=== PATIENT | female | born 1945 | race Caucasian/White ===

== ENCOUNTER 2017-08-07 16:07 | Inpatient (IN) | payer MEDICARE, BC ==
[2017-08-07] VITALS (8 sets, daily range): BP systolic 119–142; BP diastolic 58–65; PULSE 70–100; RESP 16–22; TEMP 97.5–98.4; O2SAT 80–95
[~2017-08-07] VITALS: Ht 157.5 cm; Wt 74.3 kg
--- NOTE | 2017-08-07 16:34 | PD ---
Physical Exam Time Seen by Provider: 16:32 Narrative 71 year old female being treated for bronchitis on levaquin and medrol dosepak for the last 5 days presents to ED for evaluation of worsening shortness of breath, cough, chest congestion, and rib pain. Symptoms began 10 days ago. Denies fever or chills. Hx of COPD. On oxygen at home. O2 sat 80% here in triage. Data Data Last Documented VS Vital Signs Date Time Temp Pulse Resp B/P (MAP) Pulse Ox O2 Delivery O2 Flow Rate FiO2 08/07/17 19:20 95 Nasal Cannula 3.00 08/07/17 17:27 70 17 121/58 (79) 08/07/17 16:10 98.4 Orders Orders Complete Blood Count With Diff (08/07/17 17:02) Comprehensive Metabolic Panel (08/07/17 17:02) B-Type Natriuretic Peptide (08/07/17 17:02) Act Partial Throm Time (Ptt) (08/07/17 17:02) Prothrombin Time / Inr (Pt) (08/07/17 17:02) Ckmb (Isoenzyme) Profile (08/07/17 17:02) Troponin I (08/07/17 17:02) Blood Culture (08/07/17 17:02) Iv Access Insert/Monitor (08/07/17 17:02) Electrocardiogram (08/07/17 17:02) Ecg Monitoring (08/07/17 17:02) Oximetry (08/07/17 17:02) Oxygen Administration (08/07/17 17:02) Chest, Single Ap (08/07/17 17:02) Sodium Chloride 0.9% Flush (Ns Flush) (08/07/17 17:15) Furosemide Inj (Lasix Inj) (08/07/17 17:15) Ct Brain W/O Iv Contrast(Rout) (08/07/17 17:06) Methylprednisolone So Succ Inj (Solumedr (08/07/17 19:15) Albuterol-Ipratropium Neb (Duoneb Neb) (08/07/17 19:15) Azithromycin Inj (Zithromax Inj) (08/07/17 19:30) Ceftriaxone Inj (Rocephin Inj) (08/07/17 19:30) Admit Order (Ed Use Only) (08/07/17 19:28) Labs Laboratory Tests Test 08/07/17 16:55 White Blood Count 14.1 TH/MM3 Red Blood Count 4.78 MIL/MM3 Hemoglobin 14.5 GM/DL Hematocrit 43.8 % Mean Corpuscular Volume 91.6 FL Mean Corpuscular Hemoglobin 30.4 PG Mean Corpuscular Hemoglobin Concent 33.2 % Red Cell Distribution Width 14.5 % Platelet Count 420 TH/MM3 Mean Platelet Volume 8.5 FL Neutrophils (%) (Auto) 84.4 % Lymphocytes (%) (Auto) 11.0 % Monocytes (%) (Auto) 4.1 % Eosinophils (%) (Auto) 0.1 % Basophils (%) (Auto) 0.4 % Neutrophils # (Auto) 11.9 TH/MM3 Lymphocytes # (Auto) 1.6 TH/MM3 Monocytes # (Auto) 0.6 TH/MM3 Eosinophils # (Auto) 0.0 TH/MM3 Basophils # (Auto) 0.1 TH/MM3 CBC Comment AUTO DIFF Differential Comment AUTO DIFF CONFIRMED Platelet Estimate NORMAL Platelet Morphology Comment NORMAL Prothrombin Time 11.4 SEC Prothromb Time International Ratio 1.0 RATIO Activated Partial Thromboplast Time 31.0 SEC Blood Urea Nitrogen 12 MG/DL Creatinine 0.98 MG/DL Random Glucose 101 MG/DL Total Protein 8.1 GM/DL Albumin 2.9 GM/DL Calcium Level 8.9 MG/DL Alkaline Phosphatase 280 U/L Aspartate Amino Transf (AST/SGOT) 21 U/L Alanine Aminotransferase (ALT/SGPT) 15 U/L Total Bilirubin 0.3 MG/DL Sodium Level 137 MEQ/L Potassium Level 3.6 MEQ/L Chloride Level 96 MEQ/L Carbon Dioxide Level 34.7 MEQ/L Anion Gap 6 MEQ/L Estimat Glomerular Filtration Rate 56 ML/MIN Total Creatine Kinase 60 U/L Troponin I LESS THAN 0.02 NG/ML B-Type Natriuretic Peptide 24 PG/ML [facility] Medical Record Reviewed: Yes Supervised Visit with PHILLIP: No Condition: Stable Dayami Landeros Aug 07, 2017 16:34
[2017-08-07] MEDS ORDERED: SOMA350T PO (16:56)
[2017-08-07] MEDS ORDERED: LAMO100 PO (16:56)
[2017-08-07] MEDS ORDERED: ABIL2TAB2 PO (16:56)
[2017-08-07] MEDS ORDERED: LEVA500T20 PO (16:56)
[2017-08-07] MEDS ORDERED: FURO20TA PO (16:56)
[2017-08-07] MEDS ORDERED: CELE40TA PO (16:56)
--- NOTE | 2017-08-07 17:06 | PD ---
HPI Chief Complaint: Respiratory Symptoms Time Seen by Provider: 17:02 Travel History International Travel<30 days: No Contact w/Intl Traveler<30days: No Traveled to known affect area: No History of Present Illness HPI 71-year-old female patient with history of chronic leg edema, COPD, presents to the ER today for several days history of coughing, initially was thought to have bronchitis, but was seen by primary care doctor today and was found to have fluid in her lungs. She states that she has been having some shortness of breath and dyspnea on exertion. She denies any fevers, or vomiting or any other issues. She was sent in for further evaluation. In addition, she has had 2 falls recently, does not know what happened, states that she just falls back after legs give out on her. Modifying Factors: None Associated Signs & Symptoms: Coughing, dyspnea on exertion, falls Risk Factors: Elderly, leg edema chronically, COPD PFSH Past Medical History Depression: Yes COPD: Yes Immunizations Current: Yes Pneumonia: Yes Influenza Vaccination: Yes Past Surgical History Appendectomy: Yes Cholecystectomy: Yes Hysterectomy: Yes Tonsillectomy: Yes Social History Alcohol Use: Yes (occas) Tobacco Use: No Substance Use: No Allergies-Medications (Allergen,Severity, Reaction): Coded Allergies: No Known Allergies (Unverified , 08/07/17) Reported Meds & Prescriptions Reported Meds & Active Scripts Active Reported Fentanyl Patch 72 HR (Fentanyl) 100 Mcg/Hr Patch 100 Mcg T-DERMAL Q72H Remove old patch when new one placed. Furosemide 20 Mg Tab 20 Mg PO DAILY Levaquin (Levofloxacin) 500 Mg Tablet Unknown Dose PO DAILY Celexa (Citalopram Hydrobromide) 40 Mg Tab 40 Mg PO DAILY Lamictal (Lamotrigine) 100 Mg Tab 100 Mg PO BID Abilify (Aripiprazole) 2 Mg Tab 2 Mg PO DAILY Soma (Carisoprodol) 350 Mg Tab 350 Mg PO BID PRN Review of Systems Except as stated in HPI: all other systems reviewed are Neg Physical Exam Narrative GENERAL: Well-developed elderly white female patient currently in mild respiratory distress. Awake and oriented 3. SKIN: Focused skin assessment warm/dry. HEAD: Atraumatic. Normocephalic. EYES: Pupils equal and round. No scleral icterus. No injection or drainage. ENT: No nasal bleeding or discharge. Mucous membranes pink and moist. NECK: Trachea midline. No JVD. CARDIOVASCULAR: Regular rate and rhythm. No murmur appreciated. RESPIRATORY: No accessory muscle use. Bibasilar rails. GASTROINTESTINAL: Abdomen soft, non-tender, nondistended. Hepatic and splenic margins not palpable. MUSCULOSKELETAL: No obvious deformities. No clubbing. No cyanosis. No edema. NEUROLOGICAL: Awake and alert. No obvious cranial nerve deficits. Motor grossly within normal limits. Normal speech. PSYCHIATRIC: Appropriate mood and affect; insight and judgment normal. Data Data Last Documented VS Vital Signs Date Time Temp Pulse Resp B/P (MAP) Pulse Ox O2 Delivery O2 Flow Rate FiO2 08/07/17 17:27 70 17 121/58 (79) 95 Nasal Cannula 2.00 08/07/17 16:10 98.4 Orders Orders Complete Blood Count With Diff (08/07/17 17:02) Comprehensive Metabolic Panel (08/07/17 17:02) B-Type Natriuretic Peptide (08/07/17 17:02) Act Partial Throm Time (Ptt) (08/07/17 17:02) Prothrombin Time / Inr (Pt) (08/07/17 17:02) Ckmb (Isoenzyme) Profile (08/07/17 17:02) Troponin I (08/07/17 17:02) Blood Culture (08/07/17 17:02) Iv Access Insert/Monitor (08/07/17 17:02) Electrocardiogram (08/07/17 17:02) Ecg Monitoring (08/07/17 17:02) Oximetry (08/07/17 17:02) Oxygen Administration (08/07/17 17:02) Chest, Single Ap (08/07/17 17:02) Sodium Chloride 0.9% Flush (Ns Flush) (08/07/17 17:15) Furosemide Inj (Lasix Inj) (08/07/17 17:15) Ct Brain W/O Iv Contrast(Rout) (08/07/17 17:06) Methylprednisolone So Succ Inj (Solumedr (08/07/17 19:15) Albuterol-Ipratropium Neb (Duoneb Neb) (08/07/17 19:15) Labs Laboratory Tests Test 08/07/17 16:55 White Blood Count 14.1 TH/MM3 Red Blood Count 4.78 MIL/MM3 Hemoglobin 14.5 GM/DL Hematocrit 43.8 % Mean Corpuscular Volume 91.6 FL Mean Corpuscular Hemoglobin 30.4 PG Mean Corpuscular Hemoglobin Concent 33.2 % Red Cell Distribution Width 14.5 % Platelet Count 420 TH/MM3 Mean Platelet Volume 8.5 FL Neutrophils (%) (Auto) 84.4 % Lymphocytes (%) (Auto) 11.0 % Monocytes (%) (Auto) 4.1 % Eosinophils (%) (Auto) 0.1 % Basophils (%) (Auto) 0.4 % Neutrophils # (Auto) 11.9 TH/MM3 Lymphocytes # (Auto) 1.6 TH/MM3 Monocytes # (Auto) 0.6 TH/MM3 Eosinophils # (Auto) 0.0 TH/MM3 Basophils # (Auto) 0.1 TH/MM3 CBC Comment AUTO DIFF Differential Comment AUTO DIFF CONFIRMED Platelet Estimate NORMAL Platelet Morphology Comment NORMAL Prothrombin Time 11.4 SEC Prothromb Time International Ratio 1.0 RATIO Activated Partial Thromboplast Time 31.0 SEC Blood Urea Nitrogen 12 MG/DL Creatinine 0.98 MG/DL Random Glucose 101 MG/DL Total Protein 8.1 GM/DL Albumin 2.9 GM/DL Calcium Level 8.9 MG/DL Alkaline Phosphatase 280 U/L Aspartate Amino Transf (AST/SGOT) 21 U/L Alanine Aminotransferase (ALT/SGPT) 15 U/L Total Bilirubin 0.3 MG/DL Sodium Level 137 MEQ/L Potassium Level 3.6 MEQ/L Chloride Level 96 MEQ/L Carbon Dioxide Level 34.7 MEQ/L Anion Gap 6 MEQ/L Estimat Glomerular Filtration Rate 56 ML/MIN Total Creatine Kinase 60 U/L Troponin I LESS THAN 0.02 NG/ML B-Type Natriuretic Peptide 24 PG/ML MDM Medical Decision Making Medical Screen Exam Complete: Yes Emergency Medical Condition: Yes Medical Record Reviewed: Yes Interpretation(s) EKG shows NSR, no ST elevation or depression, and no arrhythmias. No significant T-wave inversions. Laboratory Tests Test 08/07/17 16:55 White Blood Count 14.1 TH/MM3 (4.0-11.0) Neutrophils (%) (Auto) 84.4 % (16.0-70.0) Neutrophils # (Auto) 11.9 TH/MM3 (1.8-7.7) Activated Partial Thromboplast Time 31.0 SEC (24.3-30.1) Albumin 2.9 GM/DL (3.4-5.0) Alkaline Phosphatase 280 U/L (45-117) Chloride Level 96 MEQ/L (98-107) Carbon Dioxide Level 34.7 MEQ/L (21.0-32.0) Estimat Glomerular Filtration Rate 56 ML/MIN (>89) Troponin I LESS THAN 0.02 NG/ML Differential Diagnosis Dyspnea on exertion, shortness of breath, falls: Dehydration versus pneumonia versus CHF versus COPD exacerbation Narrative Course Initial exam was concerning for bibasilar Rales and Lasix was initiated in the ER. Solu-Medrol and nebulizers were also ordered. Patient appears to be doing badly as an outpatient had been sent in by her primary care physician. At this point, Zithromax was also initiated considering history. My plan would be to admit her for further treatment. Case was discussed with Dr. Robins for admission. Diagnosis Primary Impression: Pulmonary edema Additional Impression: COPD exacerbation Admitting Information Admitting Physician Requests: Admit Condition: Stable Simeon Martin MD Aug 07, 2017 17:06
[2017-08-07] MEDS ORDERED: SODIUM CHLORIDE 0.9% FLUSH 10 ML FLUSH IVF PRN (17:15)
[2017-08-07] MEDS ORDERED: FUROSEMIDE 40 MG/4 ML VIAL IVP ONE (17:15)
[2017-08-07] MEDS ORDERED: FENT100D T-DERMAL (17:30)
[2017-08-07 17:37] LABS: AUTOMATED NEUTROPHIL # 11.9 TH/MM3 (1.8-7.7); BASOPHIL # 0.1 TH/MM3 (0-0.2); BASOPHIL % 0.4 % (0.0-2.0); EOSINOPHIL % 0.1 % (0.0-4.0); HEMATOCRIT 43.8 % (35.0-46.0); LYMPHOCYTE # 1.6 TH/MM3 (1.0-4.8); MEAN CELL VOLUME 91.6 FL (80.0-100.0); MEAN CORPUSCULAR HEMOGLOBIN 30.4 PG (27.0-34.0); MEAN CORPUSCULAR HGB CONC 33.2 % (32.0-36.0); MONO % 4.1 % (0.0-8.0); NEUT % 84.4 % (16.0-70.0); PLATELET COUNT 420 TH/MM3 (150-450); RED BLOOD COUNT 4.78 MIL/MM3 (4.00-5.30); RED CELL DISTRIBUTION WIDTH 14.5 % (11.6-17.2); WHITE BLOOD COUNT 14.1 TH/MM3 (4.0-11.0)
[2017-08-07 17:44] LABS: HEMO FLAGS AUTO DIFF
--- NOTE | 2017-08-07 17:44 | RADRPT ---
EXAM DATE/TIME: 08/07/2017 17:17 [facility] COMPARISON: No previous studies available for comparison. INDICATIONS : Short of breath. Right side rib pain from fall 2 days ago. MEDICAL HISTORY : None. SURGICAL HISTORY : None. ENCOUNTER: Initial ACUITY: 1 day PAIN SCORE: 5/10 LOCATION: Right chest FINDINGS: Minimal linear peripheral opacities in the right lower lobe peripherally. No significant pneumothorax , effusion, or left apical cap. Cardiomedi centimeters are within normal limits. Probable nondisplace d fracture involving the lateral 10th right rib. CONCLUSION: 1. Probable nondisplaced lateral 10th right rib fracture with right lower lobe atelectasis. No pneumo thorax. Joao Guerrero MD on August 07, 2017 at 17:41 Board Certified Radiologist. This report was verified electronically.
[2017-08-07 17:45] LABS: PROTHROMBIN TIME - PATIENT 11.4 SEC (9.8-11.6)
[2017-08-07 17:58] LABS: ALT (GPT) 15 U/L (10-53)
--- NOTE | 2017-08-07 18:02 | RADRPT ---
EXAM DATE/TIME: 08/07/2017 17:42 [facility] COMPARISON: No previous studies available for comparison. INDICATIONS : Syncope episode. RADIATION DOSE: 47.34 CTDIvol (mGy) MEDICAL HISTORY : Chronic obstructive pulmonary disease. SURGICAL HISTORY : Appendectomy. Cholecystectomy.Hysterectomy. ENCOUNTER: Initial ACUITY: 1 day PAIN SCALE: 3/10 LOCATION: cranial TECHNIQUE: Multiple contiguous axial images were obtained of the head. Using automated exposure control and adj ustment of the mA and/or kV according to patient size, radiation dose was kept as low as reasonably a chievable to obtain optimal diagnostic quality images. DICOM format image data is available electro nically for review and comparison. FINDINGS: CEREBRUM: Mild diffuse cerebral volume loss. Mild periventricular white matter hypodensities. The ventricles ar e normal for age. No evidence of midline shift, mass lesion, hemorrhage or acute infarction. No ext ra-axial fluid collections are seen. POSTERIOR FOSSA: The cerebellum and brainstem are intact. The 4th ventricle is midline. The cerebellopontine angle i s unremarkable. EXTRACRANIAL: The visualized portion of the orbits is intact. Mild mucoperiosteal thickening involving the right sp henoid sinus and ethmoid air cells. SKULL: The calvaria is intact. No evidence of skull fracture. CONCLUSION: 1. Senescent changes with mild periventricular ischemic white matter demyelination. 2. Right sphenoid and ethmoid mucosal sinus disease. 3. No acute intracranial abnormality. Joao Guerrero MD on August 07, 2017 at 17:59 Board Certified Radiologist. This report was verified electronically.
[2017-08-07 18:30] LABS: ALKALINE PHOSPHATASE 280 U/L (45-117); ANION GAP 6 MEQ/L (5-15); AST (GOT) 21 U/L (15-37); BICARBONATE 34.7 MEQ/L (21.0-32.0); BLOOD UREA NITROGEN 12 MG/DL (7-18); CHLORIDE 96 MEQ/L (98-107); GLOMERULAR FILTRATION RATE 56 ML/MIN (>89); POTASSIUM 3.6 MEQ/L (3.5-5.1); SODIUM (NA) 137 MEQ/L (136-145); TOTAL BILIRUBIN ADULT 0.3 MG/DL (0.2-1.0)
[2017-08-07 18:31] LABS: CREATINE KINASE 60 U/L (26-192)
[2017-08-07 18:40] LABS: PLATELET ESTIMATE SMEAR NORMAL (NORMAL); PLATELET MORPHOLOGY NORMAL (NORMAL); SCAN/DIFF AUTO DIFF CONFIRMED
[2017-08-07] MEDS ORDERED: methylPREDNISolone SOD SUCC 125 MG/2 ML VIAL IV PUSH ONE (19:15)
[2017-08-07] MEDS: RESP: ALBUTEROL 2.5 MG/IPRATROPIUM 0.5 MG NEB (SCH) INH (19:20)
[2017-08-07] MEDS ORDERED: cefTRIAXone INJ 1,000 MG in SODIUM CHLORIDE 0.9% INJ 100 ML IV ONE (19:30)
[2017-08-07] MEDS ORDERED: AZITHROMYCIN INJ 500 MG in SODIUM CHLOR 0.9% 250 ML INJ 250 ML IV ONE (19:30)
[2017-08-07] MEDS ORDERED: NALOXONE HCL 0.4 MG/ML AMP IV PUSH PRN (19:45)
[2017-08-07] MEDS ORDERED: SODIUM CHLORIDE 0.9% FLUSH 10 ML FLUSH IV FLUSH PRN (19:45)
[2017-08-07] MEDS: SODIUM CHLORIDE 0.9% FLUSH 10 ML FLUSH IV FLUSH SCH (21:00)
[2017-08-07] MEDS: ACETAMINOPHEN/HYDROcodone 325 MG/5 MG TAB PO PRN (22:44)
--- NOTE | 2017-08-07 23:59 | HHI.HP ---
[facility] Service [place] [facility] Primary Care Physician Lebron Khoury DO Admission Diagnosis COPD exacerbation/pulmonary edema Diagnoses: (1) COPD exacerbation Chief Complaint: Pain following fall Cough and shortness of breath Travel History International Travel<30 Days: No Contact w/Intl Traveler <30 Da: No Traveled to Known Affected Are: No History of Present Illness Written by Jenna Del Angel, acting as scribe for Dr. Robins on 08/07/17 at 23:59. The patient states she had a "bad cold" and has been coughing for about a week. Sputum is clear in color. Reports shortness of breath "now and then". Uses supplemental oxygen at home at night only. She has used her inhaler at home with improvement in symptoms. She uses diuretics at home but has noted increasing lower extremity swelling with some medication noncompliance at home - stopped taking water pills for the last three weeks. Denies fever, nausea, vomiting, chest pain, chest tightness, abdominal pain, diarrhea, dysuria, black or red stool, hematuria, or dizziness. She was on Levaquin at home as prescribed by her PCP. She completed 7 out of a 10 day course of antibiotics. Patient reports pain with coughing in right lower posterior rib area. Fell backwards four days ago, fell the next day also - also backwards - Denies chest pain, palpitations, dizziness, or syncope prior to falls. 10th right rib fracture on x-ray 08/07/17 in ED. 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 Past Surgical History Spinal surgery Left knee surgery Right hip surgery 3 years ago Hysterectomy Cholecystectomy Appendectomy . Reported Medications Reported Meds & Active Scripts Active Reported Fentanyl Patch 72 HR (Fentanyl) 100 Mcg/Hr Patch 100 Mcg T-DERMAL Q72H Remove old patch when new one placed. Furosemide 20 Mg Tab 20 Mg PO DAILY Levaquin (Levofloxacin) 500 Mg Tablet Unknown Dose PO DAILY Celexa (Citalopram Hydrobromide) 40 Mg Tab 40 Mg PO DAILY Lamictal (Lamotrigine) 100 Mg Tab 100 Mg PO BID Abilify (Aripiprazole) 2 Mg Tab 2 Mg PO DAILY Soma (Carisoprodol) 350 Mg Tab 350 Mg PO BID PRN . Allergies: Coded Allergies: No Known Allergies (Unverified , 08/07/17) Active Ordered Medications Current Medications Sodium Chloride (NS Flush) 2 ml UNSCH PRN IVF FLUSH AFTER USING IV ACCESS Last administered on 08/07/17 17:25; Start 08/07/17 at 17:15 Furosemide (Lasix Inj) 40 mg ONCE ONCE IVP Last administered on 08/07/17 17: 25; Start 08/07/17 at 17:15; Stop 08/07/17 at 17:16; Status DC Methylprednisolone Sodium Succinate (SoluMEDROL INJ) 125 mg ONCE ONCE IV PUSH Last administered on 08/07/17 19:56; Start 08/07/17 at 19:15; Stop 08/07/17 at 19:16; Status DC Albuterol/ Ipratropium (Duoneb Neb) 1 ampule Q15M INH Last administered on 08/07 19:20; Start 08/07/17 at 19:15; Stop 08/07/17 at 19:31; Status DC Azithromycin 500 mg/Sodium Chloride 250 ml @ 250 mls/hr ONCE ONCE IV ; Start 08/07/17 at 19:30; Stop 08/07/17 at 20:29; Status DC Ceftriaxone Sodium 1000 mg/ Sodium Chloride 100 ml @ 200 mls/hr ONCE ONCE IV Last administered on 08/07/17 19:56; Start 08/07/17 at 19:30; Stop 08/07/17 at 19:59; Status DC Sodium Chloride (NS Flush) 2 ml UNSCH PRN IV FLUSH FLUSH AFTER USING IV ACCESS ; Start 08/07/17 at 19:45 Sodium Chloride (NS Flush) 2 ml BID IV FLUSH Last administered on 08/07/17 21: 00; Start 08/07/17 at 21:00 Naloxone HCl (Narcan Inj) 0.4 mg UNSCH PRN IV PUSH SEE LABEL COMMENTS; Start 08/07/17 at 19:45 Pneumococcal Polyvalent Vaccine (Pneumovax-23 Inj) 25 mcg ONCE ONCE IM ; Start 08/08/17 at 09:00; Stop 08/08/17 at 09:01 Acetaminophen/ Hydrocodone Bitart ([place] 5-325 Mg) 1 tab Q6H PRN PO pain >5 Last administered on 08/07/17t 22:44; Start 08/07/17 at 22:15 . Family History Mother with CHF Father with lung cancer Brother who is healthy . Social History Tobacco: quit smoking 7 years ago Alcohol: denies Illicit Drugs: denies Patient drives . Physical Exam Vital Signs Vital Signs Date Time Temp Pulse Resp B/P (MAP) Pulse Ox O2 Delivery O2 Flow Rate FiO2 08/07/17 22:53 125/60 (81) 95 2.00 08/07/17 21:09 95 08/07/17 20:00 97.5 94 16 119/59 (79) 92 08/07/17 19:53 94 Nasal Cannula 2.00 08/07/17 19:20 95 Nasal Cannula 3.00 08/07/17 17:27 70 17 121/58 (79) 95 Nasal Cannula 2.00 08/07/17 16:41 90 22 142/65 (90) 88 08/07/17 16:10 98.4 100 18 131/65 (87) 80 Room Air Physical Exam GENERAL: This is an overweight female patient, in no apparent distress. SKIN: No rashes, ecchymoses or lesions. Cool and dry. HEAD: Atraumatic. Normocephalic. EYES: No scleral icterus. No injection or drainage. ENT: Nose without bleeding, purulent drainage. Airway patent. NECK: Trachea midline. No JVD. CARDIOVASCULAR: Regular rate and rhythm without murmurs, gallops, or rubs. Non- pitting lower extremity edema more so on right than left - patient reports this as normal for her. RESPIRATORY: Right lower lobe with fine crepitations. No wheezes or rhonchi. GASTROINTESTINAL: Abdomen soft, non-tender, nondistended. No guarding. MUSCULOSKELETAL: Extremities without clubbing, cyanosis. No calf tenderness. Pain right posterior lower rib area. NEUROLOGICAL: Awake and alert. Motor and sensory grossly within normal limits. Normal speech. . Laboratory Laboratory Tests Test 08/07/17 16:55 White Blood Count 14.1 Red Blood Count 4.78 Hemoglobin 14.5 Hematocrit 43.8 Mean Corpuscular Volume 91.6 Mean Corpuscular Hemoglobin 30.4 Mean Corpuscular Hemoglobin Concent 33.2 Red Cell Distribution Width 14.5 Platelet Count 420 Mean Platelet Volume 8.5 Neutrophils (%) (Auto) 84.4 Lymphocytes (%) (Auto) 11.0 Monocytes (%) (Auto) 4.1 Eosinophils (%) (Auto) 0.1 Basophils (%) (Auto) 0.4 Neutrophils # (Auto) 11.9 Lymphocytes # (Auto) 1.6 Monocytes # (Auto) 0.6 Eosinophils # (Auto) 0.0 Basophils # (Auto) 0.1 CBC Comment AUTO DIFF Differential Comment AUTO DIFF CONFIRMED Platelet Estimate NORMAL Platelet Morphology Comment NORMAL Prothrombin Time 11.4 Prothromb Time International Ratio 1.0 Activated Partial Thromboplast Time 31.0 Blood Urea Nitrogen 12 Creatinine 0.98 Random Glucose 101 Total Protein 8.1 Albumin 2.9 Calcium Level 8.9 Alkaline Phosphatase 280 Aspartate Amino Transf (AST/SGOT) 21 Alanine Aminotransferase (ALT/SGPT) 15 Total Bilirubin 0.3 Sodium Level 137 Potassium Level 3.6 Chloride Level 96 Carbon Dioxide Level 34.7 Anion Gap 6 Estimat Glomerular Filtration Rate 56 Total Creatine Kinase 60 Troponin I LESS THAN 0.02 B-Type Natriuretic Peptide 24 Date/Time Source Procedure Growth Status 08/07/17 17:15 Blood Peripheral Aerobic Blood Culture Pending Received 08/07/17 17:15 Blood Peripheral Anaerobic Blood Culture Pending Received Result Diagram: 08/07/[id number]/07/171654 Imaging Last Impressions Head CT 08/07/171705 Signed Impressions: Service Date/Time: Monday, August 07, 2017 17:42 - CONCLUSION: 1. Senescent changes with mild periventricular ischemic white matter demyelination. 2. Right sphenoid and ethmoid mucosal sinus disease. 3. No acute intracranial abnormality. Joao Guerrero MD Chest X-Ray 08/07/171701 Signed Impressions: Service Date/Time: Monday, August 07, 2017 17:17 - CONCLUSION: 1. Probable nondisplaced lateral 10th right rib fracture with right lower lobe atelectasis. No pneumothorax. Joao Guerrero MD . Caprini VTE Risk Assessment Caprini VTE Risk Assessment: Mod/High Risk (score >= 2) Caprini Risk Assessment Model Point Value = 1 Point Value = 2 Point Value = 3 Point Value = 5 Age 41-60 Minor surgery BMI > 25 kg/m2 Swollen legs Varicose veins or History of unexplained or recurrent spontaneous Oral contraceptives or hormone replacement Sepsis (< 1 month) Serious lung disease, including pneumonia (< 1 month) Abnormal pulmonary function Acute myocardial infarction Congestive heart failure (< 1 month) History of inflammatory bowel disease Medical patient at bed rest Age 61-74 Arthroscopic surgery Major open surgery (> 45 min) Laparoscopic surgery (> 45 min) Malignancy Confined to bed (> 72 hours) Immobilizing plaster cast Central venous access Age >= 75 History of VTE Family history of VTE Factor V Leiden Prothrombin [id number] Lupus anticoagulant Anticardiolipin antibodies Elevated serum homocysteine Heparin-induced thrombocytopenia Other congenital or acquired thrombophilia Stroke (< 1 month) Elective arthroplasty Hip, pelvis, or leg fracture Acute spinal cord injury (< 1 month) Prophylaxis Regimen Total Risk Factor Score Risk Level Prophylaxis Regimen 0-1 Low Early ambulation 2 Moderate Order ONE of the following: *Sequential Compression Device (SCD) *Heparin 5000 units SQ BID 3-4 Higher Order ONE of the following medications: *Heparin 5000 units SQ TID *Enoxaparin/Lovenox 40 mg SQ daily (WT < 150 kg, CrCl > 30 mL/min) *Enoxaparin/Lovenox 30 mg SQ daily (WT < 150 kg, CrCl > 10-29 mL/min) *Enoxaparin/Lovenox 30 mg SQ BID (WT < 150 kg, CrCl > 30 mL/min) AND/OR *Sequential Compression Device (SCD) 5 or more Highest Order ONE of the following medications: *Heparin 5000 units SQ TID (Preferred with Epidurals) *Enoxaparin/Lovenox 40 mg SQ daily (WT < 150 kg, CrCl > 30 mL/min) *Enoxaparin/Lovenox 30 mg SQ daily (WT < 150 kg, CrCl > 10-29 mL/min) *Enoxaparin/Lovenox 30 mg SQ BID (WT < 150 kg, CrCl > 30 mL/min) AND *Sequential Compression Device (SCD) Assessment and Plan Problem List: (1) COPD exacerbation ICD Code: J44.1 - Chronic obstructive pulmonary disease with (acute) exacerbation Status: Acute (2) Lower extremity edema ICD Code: R60.0 - Localized edema Status: Chronic (3) Rib fracture ICD Code: S22.39XA - Fracture of one rib, unspecified side, initial encounter for closed fracture Assessment and Plan 71 year-old female who presented tot he ED on 08/07/17 to be evaluated for pain in right posterior thorax following a fall also found to have symptoms suspicious for COPD exacerbation and right rib fracture with two recent falls at home: COPD exacerbation with hypoxia - Oxygen saturation 80 % on admission - Duonebulizer treatments q4H PRN wheezing - WBC elevated at 14.1 - Check CT pulmonary angiogram to r/o PE - 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 q6h PRN pain DVT prophylaxis - Lovenox 40 mg subq q24h . This note was transcribed by [email or web address] [email or web address] [Jenna Del Angel]. I, Dr. Gricelda Robins personally performed the history, physical exam, and medical decision making; and confirmed the accuracy of the information in the transcribed note. Authenticated by Dr. Gricelda Robins on 08/07/17 at 23:59. Discussed Condition With ER physician and patient . Physician Certification 2 Midnight Certification Type: Admission for Inpatient Services Order for Inpatient Services The services are ordered in accordance with Medicare regulations or non- Medicare payer requirements, as applicable. In the case of services not specified as inpatient-only, they are appropriately provided as inpatient services in accordance with the 2-midnight benchmark. Estimated LOS (days): 3 days is the estimated time the patient will need to remain in the hospital, assuming treatment plan goals are met and no additional complications. Post-Hospital Plan: Not yet determined Jenna Del Angel Aug 07, 2017 23:59 Gricelda Robins MD Aug 15, 2017 23:07
[2017-08-08] VITALS (10 sets, daily range): BP systolic 104–132; BP diastolic 56–83; PULSE 80–94; RESP 18; TEMP 97.3–98.5; O2SAT 88–94
[2017-08-08] MEDS ORDERED: RESP: ALBUTEROL 2.5 MG/IPRATROPIUM 0.5 MG NEB (PRN) NEB (00:45)
[2017-08-08 00:47] LABS: CREATINE KINASE 38 U/L (26-192)
[2017-08-08] MEDS: ENOXAPARIN SODIUM 40 MG/0.4 ML SYRINGE SQ SCH (01:27)
[2017-08-08] MEDS ORDERED: IOHEXOL 350 MG/ML 10 ML VIAL (for RAD DIAG) IVCONTRAST ONE (02:54)
--- NOTE | 2017-08-08 03:05 | RADRPT ---
EXAM DATE/TIME: 08/08/2017 02:40 [place] COMPARISON: No previous studies available for comparison. INDICATIONS : Shortness of breath. Evaluate for embolism. IV CONTRAST: 75 cc Omnipaque 350 (iohexol) IV RADIATION DOSE: 8.14 CTDIvol (mGy) MEDICAL HISTORY : Chronic obstructive pulmonary disease. SURGICAL HISTORY : Hysterectomy. Appendectomy.Cholecystectomy. ENCOUNTER: Initial ACUITY: 1 day PAIN SCALE: 0/10 LOCATION: chest TECHNIQUE: Volumetric scanning of the chest was performed using a pulmonary embolism protocol MIP images were re constructed. Using automated exposure control and adjustment of the mA and/or kV according to patien t size, radiation dose was kept as low as reasonably achievable to obtain optimal diagnostic quality images. DICOM format image data is available electronically for review and comparison. Follow-up recommendations for detected pulmonary nodules are based at a minimum on nodule size and pa tient risk factors according to Fleischner Society Guidelines. FINDINGS: PULMONARY ARTERIES: No filling defects are seen in the pulmonary arteries through the segmental level. LUNGS: Emphysema and mild, diffuse thickening of the interlobular septa noted, probably chronic interstitial disease. A spiculated nodule measuring approximately 11 mm is seen in the left upper lobe. Both lung s have patchy areas of basilar predominant subpleural consolidation, right more so than left. Tiny ri ght pleural effusion. No pneumothorax. MEDIASTINUM: There is good visualization of the great vessels of the middle mediastinum. No evidence of mediastin al or hilar adenopathy/mass. MUSCULOSKELETAL: No acute bony abnormality demonstrated. MISCELLANEOUS: The visualized upper abdominal organs demonstrate no acute abnormality. CONCLUSION: 1. There is no pulmonary embolus. 2. Patchy subpleural consolidation of both lungs, basilar predominant and right worse than left. This is most likely infectious or inflammatory. Cryptogenic organizing pneumonia can appear similar. 3. Fibroemphysematous changes. 4. 11 mm nodule with irregular margins in the left upper lobe and early primary bronchogenic carcinom a is in the differential. PET CT is recommended if felt clinically indicated. Small size and location would make percutaneous needle biopsy difficult but could be attempted depending on the PET CT findi ngs. Reji Tobin MD on August 08, 2017 at 2:58 Board Certified Radiologist. This report was verified electronically.
[2017-08-08] MEDS: ACETAMINOPHEN/HYDROcodone 325 MG/5 MG TAB PO PRN ×3 (04:48→20:09)
[2017-08-08] MEDS: SODIUM CHLORIDE 0.9% FLUSH 10 ML FLUSH IV FLUSH SCH ×2 (07:44→20:10)
[2017-08-08 08:10] LABS: AUTOMATED NEUTROPHIL # 8.5 TH/MM3 (1.8-7.7); BASOPHIL % 0.1 % (0.0-2.0); HEMATOCRIT 39.2 % (35.0-46.0); LYMPH % 9.7 % (9.0-44.0); LYMPHOCYTE # 0.9 TH/MM3 (1.0-4.8); MEAN CORPUSCULAR HEMOGLOBIN 30.4 PG (27.0-34.0); MEAN CORPUSCULAR HGB CONC 33.4 % (32.0-36.0); MONO % 2.6 % (0.0-8.0); NEUT % 87.6 % (16.0-70.0); PLATELET COUNT 378 TH/MM3 (150-450); RED BLOOD COUNT 4.31 MIL/MM3 (4.00-5.30); RED CELL DISTRIBUTION WIDTH 14.3 % (11.6-17.2); WHITE BLOOD COUNT 9.7 TH/MM3 (4.0-11.0)
--- NOTE | 2017-08-08 08:11 | EKG ---
Date Performed: 08/07/2017 Time Performed: 16:47:25 PTAGE: 71 years EKG: Sinus rhythm WITH MARKED SINUS ARRHYTHMIA NONSPECIFIC T-WAVE ABNORMALITY BORDERLINE ECG Compared to prior tracing no significant change PREVIOUS TRACING : 02/27/1997 12.15 DOCTOR: Amna Lau Interpretating Date/Time 08/08/2017 08:09:56
--- NOTE | 2017-08-08 08:11 | EKG ---
Date Performed: 08/07/2017 Time Performed: 22:18:47 PTAGE: 71 years EKG: Sinus rhythm WITH MARKED SINUS ARRHYTHMIA NONSPECIFIC ST & T-WAVE ABNORMALITY BORDERLINE ECG Compared to prior tr acing no significant change PREVIOUS TRACING : 08/07/2017 16.47 DOCTOR: Amna Lau Interpretating Date/Time 08/08/2017 08:10:05
[2017-08-08 08:16] LABS: HEMO FLAGS AUTO DIFF
[2017-08-08 08:33] LABS: ANION GAP 7 MEQ/L (5-15); BICARBONATE 33.5 MEQ/L (21.0-32.0); BLOOD UREA NITROGEN 13 MG/DL (7-18); CHLORIDE 97 MEQ/L (98-107); GLOMERULAR FILTRATION RATE 67 ML/MIN (>89); POTASSIUM 3.6 MEQ/L (3.5-5.1); SODIUM (NA) 137 MEQ/L (136-145)
[2017-08-08 08:37] LABS: CREATINE KINASE 39 U/L (26-192)
[2017-08-08 08:50] LABS: PLATELET ESTIMATE SMEAR NORMAL (NORMAL); PLATELET MORPHOLOGY ENLARGED (NORMAL); SCAN/DIFF AUTO DIFF CONFIRMED
[2017-08-08] MEDS ORDERED: PNEUMOCOCCAL POLYVALENT INJ 25 MCG/0.5 ML SYR IM ONE (09:00)
--- NOTE | 2017-08-08 10:56 | HHI.PR ---
Subjective Remarks in no acute distress however with some sob. says that she's feeling better today. no fever. denies pain. has some occasional productive cough. Objective Vitals Vital Signs Date Time Temp Pulse Resp B/P (MAP) Pulse Ox O2 Delivery O2 Flow Rate FiO2 08/08/17 08:00 97.8 89 18 104/58 (73) 91 08/08/17 07:32 88 Nasal Cannula 2.00 08/08/17 04:00 97.9 89 18 107/61 (76) 94 08/08/17 04:00 Nasal Cannula 2.00 08/08/17 00:00 Nasal Cannula 2.00 08/08/17 00:00 98.0 83 18 110/59 (76) 94 08/07/17 22:53 125/60 (81) 95 2.00 08/07/17 21:09 95 08/07/17 20:00 97.5 94 16 119/59 (79) 92 08/07/17 19:53 94 Nasal Cannula 2.00 08/07/17 19:20 95 Nasal Cannula 3.00 08/07/17 17:27 70 17 121/58 (79) 95 Nasal Cannula 2.00 08/07/17 16:41 90 22 142/65 (90) 88 08/07/17 16:10 98.4 100 18 131/65 (87) 80 Room Air I/O 08/07/17 08/07/17 08/07/17 08/08/17 08/08/17 08/08/17 07:00 15:00 23:00 07:00 15:00 23:00 Intake Total 340 ml Balance 340 ml Intake Oral 240 ml IV Total 100 ml # Voids 2 # Bowel Movements 0 Result Diagram: 08/08/17 0540 08/08/17 [address] Angiography 08/08/17 0000 Signed Impressions: Service Date/Time: Tuesday, August 08, 2017 02:40 - CONCLUSION: 1. There is no pulmonary embolus. 2. Patchy subpleural consolidation of both lungs, basilar predominant and right worse than left. This is most likely infectious or inflammatory. Cryptogenic organizing pneumonia can appear similar. 3. Fibroemphysematous changes. 4. 11 mm nodule with irregular margins in the left upper lobe and early primary bronchogenic carcinoma is in the differential. PET CT is recommended if felt clinically indicated. Small size and location would make percutaneous needle biopsy difficult but could be attempted depending on the PET CT findings. Reji Tobin MD Head CT 08/07/171705 Signed Impressions: Service Date/Time: Monday, August 07, 2017 17:42 - CONCLUSION: 1. Senescent changes with mild periventricular ischemic white matter demyelination. 2. Right sphenoid and ethmoid mucosal sinus disease. 3. No acute intracranial abnormality. Joao Guerrero MD Chest X-Ray 08/07/171701 Signed Impressions: Service Date/Time: Monday, August 07, 2017 17:17 - CONCLUSION: 1. Probable nondisplaced lateral 10th right rib fracture with right lower lobe atelectasis. No pneumothorax. Joao Guerrero MD Objective Remarks GENERAL: This is a well-nourished, well-developed patient, in no apparent distress. CARDIOVASCULAR: Regular rate and regular rhythm without murmurs, gallops, or rubs. RESPIRATORY: diminished air entry in bases. GASTROINTESTINAL: Abdomen soft, non-tender, nondistended. Normal, active bowel sounds MUSCULOSKELETAL: Extremities without clubbing, cyanosis, or edema. NEURO: Alert & Oriented x4 to person, place, time, situation. Moves all ext x4 Medications and IVs Current Medications Sodium Chloride (NS Flush) 2 ml UNSCH PRN IVF FLUSH AFTER USING IV ACCESS Last administered on 08/07/17 17:25; Start 08/07/17 at 17:15; Stop 08/08/17 at 00:39 ; Status DC Furosemide (Lasix Inj) 40 mg ONCE ONCE IVP Last administered on 08/07/17 17: 25; Start 08/07/17 at 17:15; Stop 08/07/17 at 17:16; Status DC Methylprednisolone Sodium Succinate (SoluMEDROL INJ) 125 mg ONCE ONCE IV PUSH Last administered on 08/07/17 19:56; Start 08/07/17 at 19:15; Stop 08/07/17 at 19:16; Status DC Albuterol/ Ipratropium (Duoneb Neb) 1 ampule Q15M INH Last administered on 08/07 19:20; Start 08/07/17 at 19:15; Stop 08/07/17 at 19:31; Status DC Azithromycin 500 mg/Sodium Chloride 250 ml @ 250 mls/hr ONCE ONCE IV ; Start 08/07/17 at 19:30; Stop 08/07/17 at 20:29; Status DC Ceftriaxone Sodium 1000 mg/ Sodium Chloride 100 ml @ 200 mls/hr ONCE ONCE IV Last administered on 08/07/17 19:56; Start 08/07/17 at 19:30; Stop 08/07/17 at 19:59; Status DC Sodium Chloride (NS Flush) 2 ml UNSCH PRN IV FLUSH FLUSH AFTER USING IV ACCESS ; Start 08/07/17 at 19:45 Sodium Chloride (NS Flush) 2 ml BID IV FLUSH Last administered on 08/08/17 07: 44; Start 08/07/17 at 21:00 Naloxone HCl (Narcan Inj) 0.4 mg UNSCH PRN IV PUSH SEE LABEL COMMENTS; Start 08/07/17 at 19:45 Pneumococcal Polyvalent Vaccine (Pneumovax-23 Inj) 25 mcg ONCE ONCE IM ; Start 08/08/17 at 09:00; Stop 08/08/17 at 09:01; Status DC Acetaminophen/ Hydrocodone Bitart ([place] 5-325 Mg) 1 tab Q6H PRN PO pain >5 Last administered on 08/08/17 04:48; Start 08/07/17 at 22:15 Albuterol/ Ipratropium (Duoneb Neb) 1 ampule Q4HR NEB PRN NEB wheezing; Start 08/08/17 at 00:45 Enoxaparin Sodium (Lovenox Inj) 40 mg Q24H SQ Last administered on 08/08/17 01 :27; Start 08/08/17 at 01:00 Iohexol (Omnipaque 350 Inj) 75 ml STK-MED ONCE IVCONTRAST Last administered on 08/08/17 02:54; Start 08/08/17 at 02:54; Stop 08/08/17 at 02:55; Status DC A/P Assessment and Plan A/P COPD exacerbation with hypoxia/ with possible pneumonia - Oxygen saturation 80 % on admission - Duonebulizer treatments q4H PRN wheezing - consult Dr. Loyola. Chronic lower extremity edema - takes Lasix at home - denies history of heart failure but would like to r/o CHF - check echocardiogram to evaluate cardiac structure and function Right 10th rib fracture on x-ray s/p falls x 2 at home Right posterior rib pain - Incentive Spirometry to prevent pneumonia - physical therapy consulted - for safety evaluation given recent falls - [place] 5/325 mg p.o. q6h PRN pain DVT prophylaxis - Lovenox 40 mg subq q24h Val Perez MD Aug 08, 2017 10:56
[2017-08-08] MEDS: AZITHROMYCIN INJ 250 MG in SODIUM CHLOR 0.9% 250 ML INJ 250 ML IV SCH (12:55)
[2017-08-08] MEDS ORDERED: fentaNYL 100 MCG/HR PATCH T-DERMAL SCH (13:00)
[2017-08-08] MEDS: methylPREDNISolone SOD SUCC 40 MG/1 ML VIAL IV PUSH SCH ×2 (13:00→21:55)
--- NOTE | 2017-08-08 16:39 | EKG ---
Date Performed: 08/08/2017 Time Performed: 04:45:08 PTAGE: 71 years EKG: Sinus arrhythmia Possible anterior infarct - age undetermined Compared to prior tracing no significant change Abnormal ECG PREVIOUS TRACING : 08/07/2017 22.18 DOCTOR: Amna Lau Interpretating Date/Time 08/08/2017 16:36:43
--- NOTE | 2017-08-08 18:24 | ECHRPT ---
Indication: sob CONCLUSIONS Technically difficult study Grossly normal ejection fraction, in limited views appears around 55%. Doppler parameters are consistent with impaired left ventricular relaxtion (grade 1 diastolic dysfun ction). There is mild tricuspid valve regurgitation. Mild mitral valve regurgitation. BP: / HR: Rhythm: MEASUREMENTS (Male / Female) Normal Values Technical Quality:Technically difficult study 2D ECHO LV Diastolic Diameter PLAX 4.8 cm 4.2 - 5.9 / 3.9 - 5.3 cm LV Systolic Diameter PLAX 3.4 cm IVS Diastolic Thickness 1.1 cm 0.6 - 1.0 / 0.6 - 0.9 cm LVPW Diastolic Thickness 0.9 cm 0.6 - 1.0 / 0.6 - 0.9 cm LV Relative Wall Thickness 0.4 RV Internal Dim ED PLAX 2.1 cm M-MODE Aortic Root Diameter MM 3.3 cm LA Systolic Diameter MM 3.9 cm LA Ao Ratio MM 1.2 AV Cusp Separation MM 2.0 cm DOPPLER Mitral E Point Velocity 80.5 cm/s Mitral A Point Velocity 91.3 cm/s Mitral E to A Ratio 0.9 LV E' Lateral Velocity 9.2 cm/s Mitral E to LV E' Lateral Ratio 8.8 LV E' Septal Velocity 8.9 cm/s Mitral E to LV E' Septal Ratio 9.1 FINDINGS LEFT VENTRICLE Grossly normal ejection fraction, in limited views appears around 55%. There was limited left ventricular wall motion assessment due to poor endocardial visualization. Normal left ventricular size. Doppler parameters are consistent with impaired left ventricular relaxtion (grade 1 diastolic dysfun ction). RIGHT VENTRICLE The right ventricle was not well visualized. LEFT ATRIUM The left atrium was not well visualized. RIGHT ATRIUM The right atrium is not well visualized. ATRIAL SEPTUM The interatrial septum not well visualized. AORTA The aortic root and proximal ascending aorta are not well visualized. MITRAL VALVE Structurally normal mitral valve. Mild mitral valve regurgitation. AORTIC VALVE Grossly normal. TRICUSPID VALVE The tricuspid valve is not well visualized. There is mild tricuspid valve regurgitation. PULMONARY VALVE The pulmonary valve is not well visualized. VESSELS The inferior vena cava was not well visualized. . Ruperto Palmer DO (Electronically Signed) Final Date:08 August 2017 18:23
[2017-08-08] MEDS ORDERED: cefTRIAXone INJ 1,000 MG in SODIUM CHLORIDE 0.9% INJ 100 ML IV SCH (20:00)
[2017-08-08] MEDS: lamoTRIgine 100 MG TAB PO SCH (20:09)
--- NOTE | 2017-08-08 20:34 | MB ---
cc: CULLEN RUST DATE OF CONSULTATION 08/08/17 REASON FOR CONSULTATION COPD exacerbation. HISTORY OF PRESENT ILLNESS Ms. Encarnacion is a 71-year-old female with longstanding history of COPD. She uses oxygen mostly at nighttime. She has not been feeling well for about a week or so. She has been having cough, congestion and wheezing in her chest. She saw Dr. Lebron Kang, was given a Medrol Dosepak and Levaquin. She was not getting well. Over the last two days, she was feeling weak and she was trying to seed cone picker something and fell backward and landed on her back. Because of worsening of her shortness of breath, she came to the emergency room. She had a workup done. Her CBC shows WBC count 9.7, hemoglobin 13, hematocrit 39.2, MCV 91, platelet count 378, sodium 137, potassium 3.6, chloride 97, CO2 33, BUN 13, creatinine 0.87. She had a chest x-ray done which shows probable nondisplaced right tenth rib fracture. She had a CT scan of the head done which shows right sphenoid and ethmoid mucosal disease. She had a CT of the chest done which shows no pulmonary embolism, shows patchy subpleural consolidation in both lung bases, likely inflammatory process. She also has an 11 mm nodule with irregular margin in the left upper lobe. PAST MEDICAL HISTORY 1. History of COPD, 2. Anxiety, depression 3. Back pain 4. History of knee surgery, 5. Hysterectomy, 6. Cholecystectomy 7. Appendectomy. MEDICATIONS currently taking 1. Abilify 2 mg 2. Citalopram 40 mg. 3. Lamictal 100 mg twice a day 4. Rocephin 1 gram a day 5. Solu-Medrol 40 mg q. 8-hour. 6. Fentanyl patch. 7. Zithromax 500 mg a day 8. Lovenox 40 mg a day. 9. Albuterol/Atrovent nebulizer treatment. ALLERGIES NO KNOWN DRUG ALLERGIES. SOCIAL HISTORY She has history of smoking in the past which she quit. She lives with her significant other. REVIEW OF SYSTEMS Normally she is up, around and active. No weight loss. No DVT or pulmonary embolism. PHYSICAL EXAMINATION GENERAL: An elderly female not in acute distress. VITAL SIGNS: Blood pressure 119/56, heart rate 91, respiration 18, temperature 97.9 HEENT: Pupils are equal and reactive to light. Oral mucosa and nasal mucosa normal. NECK: Supple. JVP not raised. CHEST: Equal air entry, faint rhonchi. CARDIOVASCULAR: S1, S2 normal. ABDOMEN: Benign. EXTREMITIES: No edema. IMPRESSION 1. COPD exacerbation. 2. Patchy bilateral lung infiltrates likely infectious process. 3. Left upper lobe 11 mm nodule with irregular margin concerning for malignancy. 4. History of nicotine use in the past. 5. Anxiety, depression. PLAN I discussed with the patient we will treat her with antibiotic. Continue IV Solu-Medrol, supplement her oxygen. She will need a PET scan as an outpatient for the determination of activity in the left upper lobe nodule. Further treatment will depend on the course in the hospital. Thank, Dr. Robins, for this consultation. MD MOMO Tyson/ /7:02 PM /8:14 PM
[2017-08-08] MEDS ORDERED: diphenhydrAMINE HCL 25 MG CAP PO ONE (21:45)
[2017-08-09] VITALS (7 sets, daily range): BP systolic 117–136; BP diastolic 61–67; PULSE 86–96; RESP 18–20; TEMP 97.3–98.4; O2SAT 94–97
[2017-08-09] MEDS: ENOXAPARIN SODIUM 40 MG/0.4 ML SYRINGE SQ SCH (01:54)
[2017-08-09] MEDS: ACETAMINOPHEN/HYDROcodone 325 MG/5 MG TAB PO PRN ×2 (03:39→11:58)
[2017-08-09] MEDS: methylPREDNISolone SOD SUCC 40 MG/1 ML VIAL IV PUSH SCH ×2 (05:09→13:09)
[2017-08-09] MEDS: SODIUM CHLORIDE 0.9% FLUSH 10 ML FLUSH IV FLUSH SCH (07:33)
[2017-08-09] MEDS ORDERED: ARIPiprazole 2 MG TAB PO SCH (09:00)
[2017-08-09] MEDS ORDERED: CITALOPRAM HYDROBROMIDE 40 MG TAB PO SCH (09:00)
--- NOTE | 2017-08-09 09:28 | HHI.PR ---
Subjective Remarks in no distress. sob has much improved. no fever or any other complaints. wants to go home today. Objective Vitals Vital Signs Date Time Temp Pulse Resp B/P (MAP) Pulse Ox O2 Delivery O2 Flow Rate FiO2 08/09/17 08:00 97.3 86 18 117/67 (84) 96 08/09/17 04:00 Nasal Cannula 2.00 08/09/17 03:44 98.4 89 20 128/65 (86) 97 08/09/17 00:25 98.2 88 20 121/61 (81) 96 08/09/17 00:00 Nasal Cannula 2.00 08/08/17 20:36 81 08/08/17 20:19 97.8 89 18 123/72 (89) 94 08/08/17 20:00 Nasal Cannula 2.00 08/08/17 19:00 98.5 88 18 132/72 (92) 93 08/08/17 18:19 93 Nasal Cannula 2.00 08/08/17 16:00 97.3 94 18 119/56 (77) 93 08/08/17 16:00 97.9 91 18 128/83 (98) 91 08/08/17 12:00 97.8 80 18 107/59 (75) 90 I/O 08/08/17 08/08/17 08/08/17 08/09/17 08/09/17 08/09/17 07:00 15:00 23:00 07:00 15:00 23:00 Intake Total 340 ml 580 ml Output Total 1400 ml Balance 340 ml -820 ml Intake Oral 240 ml 480 ml IV Total 100 ml 100 ml Output Urine Total 1400 ml # Voids 2 5 # Bowel Movements 0 0 Result Diagram: 08/08/17 0540 08/08/17 [address] Angiography 08/08/17 0000 Signed Impressions: Service Date/Time: Tuesday, August 08, 2017 02:40 - CONCLUSION: 1. There is no pulmonary embolus. 2. Patchy subpleural consolidation of both lungs, basilar predominant and right worse than left. This is most likely infectious or inflammatory. Cryptogenic organizing pneumonia can appear similar. 3. Fibroemphysematous changes. 4. 11 mm nodule with irregular margins in the left upper lobe and early primary bronchogenic carcinoma is in the differential. PET CT is recommended if felt clinically indicated. Small size and location would make percutaneous needle biopsy difficult but could be attempted depending on the PET CT findings. Reji Tobin MD Head CT [id number]/07/[id number] Signed Impressions: Service Date/Time: Monday, August 07, 2017 17:42 - CONCLUSION: 1. Senescent changes with mild periventricular ischemic white matter demyelination. 2. Right sphenoid and ethmoid mucosal sinus disease. 3. No acute intracranial abnormality. Joao Guerrero MD Chest X-Ray [id number]/07/[id number] Signed Impressions: Service Date/Time: Monday, August 07, 2017 17:17 - CONCLUSION: 1. Probable nondisplaced lateral 10th right rib fracture with right lower lobe atelectasis. No pneumothorax. Joao Guerrero MD Objective Remarks GENERAL: This is a well-nourished, well-developed patient, in no apparent distress. CARDIOVASCULAR: Regular rate and regular rhythm without murmurs, gallops, or rubs. RESPIRATORY: diminished air entry in bases. GASTROINTESTINAL: Abdomen soft, non-tender, nondistended. Normal, active bowel sounds MUSCULOSKELETAL: Extremities without clubbing, cyanosis, or edema. NEURO: Alert & Oriented x4 to person, place, time, situation. Moves all ext x4 Procedures none Medications and IVs Current Medications Sodium Chloride (NS Flush) 2 ml UNSCH PRN IVF FLUSH AFTER USING IV ACCESS Last administered on 08/07/17 17:25; Start 08/07/17 at 17:15; Stop 08/08/17 at 00:39 ; Status DC Furosemide (Lasix Inj) 40 mg ONCE ONCE IVP Last administered on 08/07/17 17: 25; Start 08/07/17 at 17:15; Stop 08/07/17 at 17:16; Status DC Methylprednisolone Sodium Succinate (SoluMEDROL INJ) 125 mg ONCE ONCE IV PUSH Last administered on 08/07/17 19:56; Start 08/07/17 at 19:15; Stop 08/07/17 at 19:16; Status DC Albuterol/ Ipratropium (Duoneb Neb) 1 ampule Q15M INH Last administered on 08/07 19:20; Start 08/07/17 at 19:15; Stop 08/07/17 at 19:31; Status DC Azithromycin 500 mg/Sodium Chloride 250 ml @ 250 mls/hr ONCE ONCE IV ; Start 08/07/17 at 19:30; Stop 08/07/17 at 20:29; Status DC Ceftriaxone Sodium 1000 mg/ Sodium Chloride 100 ml @ 200 mls/hr ONCE ONCE IV Last administered on 08/07/17 19:56; Start 08/07/17 at 19:30; Stop 08/07/17 at 19:59; Status DC Sodium Chloride (NS Flush) 2 ml UNSCH PRN IV FLUSH FLUSH AFTER USING IV ACCESS ; Start 08/07/17 at 19:45 Sodium Chloride (NS Flush) 2 ml BID IV FLUSH Last administered on 08/09/17 07: 33; Start 08/07/17 at 21:00 Naloxone HCl (Narcan Inj) 0.4 mg UNSCH PRN IV PUSH SEE LABEL COMMENTS; Start 08/07/17 at 19:45 Pneumococcal Polyvalent Vaccine (Pneumovax-23 Inj) 25 mcg ONCE ONCE IM ; Start 08/08/17 at 09:00; Stop 08/08/17 at 09:01; Status DC Acetaminophen/ Hydrocodone Bitart (Aromas 5-325 Mg) 1 tab Q6H PRN PO pain >5 Last administered on 08/09/17 03:39; Start 08/07/17 at 22:15 Albuterol/ Ipratropium (Duoneb Neb) 1 ampule Q4HR NEB PRN NEB wheezing; Start 08/08/17 at 00:45 Enoxaparin Sodium (Lovenox Inj) 40 mg Q24H SQ Last administered on 08/09/17 01 :54; Start 08/08/17 at 01:00 Iohexol (Omnipaque 350 Inj) 75 ml STK-MED ONCE IVCONTRAST Last administered on 08/08/17 02:54; Start 08/08/17 at 02:54; Stop 08/08/17 at 02:55; Status DC Ceftriaxone Sodium 1000 mg/ Sodium Chloride 100 ml @ 200 mls/hr Q24H IV Last administered on 08/08/17 20:08; Start 08/08/17 at 20:00 Azithromycin 250 mg/Sodium Chloride 250 ml @ 250 mls/hr Q24H IV Last administered on 08/08/17 12:55; Start 08/08/17 at 12:00 Methylprednisolone Sodium Succinate (SoluMEDROL INJ) 40 mg Q8HR IV PUSH Last administered on 08/09/17 05:09; Start 08/08/17 at 14:00 Aripiprazole (Abilify) 2 mg DAILY PO ; Start 08/09/17 at 09:00 Citalopram Hydrobromide (CeleXA) 40 mg DAILY PO ; Start 08/09/17 at 09:00 Fentanyl (Duragesic 100 Mcg Patch.72 Hr) 1 patch Q72H T-DERMAL ; Start 08/08/17 at 13:00 Lamotrigine (LaMICtal) 100 mg BID PO Last administered on 08/08/17 20:09; Start 08/08/17 at 21:00 Influenza Virus Vaccine (Flu (Quadrivalent) Vaccine Inj) 0.5 ml ONCE ONCE IM ; Start 08/09/17 at 10:00; Stop 08/09/17 at 10:01 Diphenhydramine HCl (Benadryl) 25 mg ONCE ONCE PO Last administered on 21:54; Start 08/08/17 at 21:45; Stop 08/08/17 at 21:46; Status DC A/P Assessment and Plan A/P COPD exacerbation with hypoxia/ with possible pneumonia- improved. - continue antibiotics. - continue neb treatments. -patient is on home oxygen. -pulmonary consult appreciated. left lung nodule - PET scan as outpatient. Chronic lower extremity edema - takes Lasix at home - denies history of heart failure but would like to r/o CHF - echo with EF 55% and grade I diastolic dysfunction. Right 10th rib fracture on x-ray s/p falls x 2 at home Right posterior rib pain - Incentive Spirometry to prevent pneumonia - physical therapy consulted - Aromas 5/325 mg p.o. q6h PRN pain DVT prophylaxis - Lovenox 40 mg subq q24h Discharge Planning dc home today if ok with pulmonary. see med list. f/u; pcp and pulmonary. d/w the patient. Val Perez MD Aug 09, 2017 09:28
[2017-08-09] MEDS ORDERED: IPRASOL NEB (09:30)
[2017-08-09] MEDS ORDERED: ZITH250T PO (09:30)
[2017-08-09] MEDS ORDERED: CEFU1TAB42 PO (09:30)
--- NOTE | 2017-08-09 09:31 | HHI.DS ---
Discharge Summary Admission Date Aug 07, 2017 at 19:44 Discharge Date: Aug 09, 2017 Admitting Diagnosis COPD exacerbation/pulmonary edema (1) COPD exacerbation ICD Code: J44.1 - Chronic obstructive pulmonary disease with (acute) exacerbation Diagnosis: Principal Status: Acute (2) Lower extremity edema ICD Code: R60.0 - Localized edema Diagnosis: Secondary Status: Chronic (3) Rib fracture ICD Code: S22.39XA - Fracture of one rib, unspecified side, initial encounter for closed fracture Diagnosis: Secondary Procedures none Brief History - From Admission Written by Jenna Del Angel, acting as scribe for Dr. Robins on 08/07/17 at 23:59. The patient states she had a "bad cold" and has been coughing for about a week. Sputum is clear in color. Reports shortness of breath "now and then". Uses supplemental oxygen at home at night only. She has used her inhaler at home with improvement in symptoms. She uses diuretics at home but has noted increasing lower extremity swelling with some medication noncompliance at home - stopped taking water pills for the last three weeks. Denies fever, nausea, vomiting, chest pain, chest tightness, abdominal pain, diarrhea, dysuria, black or red stool, hematuria, or dizziness. She was on Levaquin at home as prescribed by her PCP. She completed 7 out of a 10 day course of antibiotics. Patient reports pain with coughing in right lower posterior rib area. Fell backwards four days ago, fell the next day also - also backwards - Denies chest pain, palpitations, dizziness, or syncope prior to falls. 10th right rib fracture on x-ray 08/07/17 in ED. Acid Conditioner - Dr. Loyola CBC/BMP: 08/08/17 0540 08/08/17 0540 Significant Findings Laboratory Tests Test 08/07/17 16:55 08/07/17 23:56 08/08/17 05:40 White Blood Count 14.1 TH/MM3 (4.0-11.0) Neutrophils (%) (Auto) 84.4 % (16.0-70.0) 87.6 % (16.0-70.0) Neutrophils # (Auto) 11.9 TH/MM3 (1.8-7.7) 8.5 TH/MM3 (1.8-7.7) Activated Partial Thromboplast Time 31.0 SEC (24.3-30.1) Albumin 2.9 GM/DL (3.4-5.0) Alkaline Phosphatase 280 U/L (45-117) Chloride Level 96 MEQ/L (98-107) 97 MEQ/L (98-107) Carbon Dioxide Level 34.7 MEQ/L (21.0-32.0) 33.5 MEQ/L (21.0-32.0) Estimat Glomerular Filtration Rate 56 ML/MIN (>89) 67 ML/MIN (>89) Troponin I LESS THAN 0.02 NG/ML LESS THAN 0.02 NG/ML LESS THAN 0.02 NG/ML Lymphocytes # (Auto) 0.9 TH/MM3 (1.0-4.8) Platelet Morphology Comment ENLARGED (NORMAL) Random Glucose 122 MG/DL (74-106) Imaging Last Impressions CT Angiography 08/08/17 0000 Signed Impressions: Service Date/Time: Tuesday, August 08, 2017 02:40 - CONCLUSION: 1. There is no pulmonary embolus. 2. Patchy subpleural consolidation of both lungs, basilar predominant and right worse than left. This is most likely infectious or inflammatory. Cryptogenic organizing pneumonia can appear similar. 3. Fibroemphysematous changes. 4. 11 mm nodule with irregular margins in the left upper lobe and early primary bronchogenic carcinoma is in the differential. PET CT is recommended if felt clinically indicated. Small size and location would make percutaneous needle biopsy difficult but could be attempted depending on the PET CT findings. Reji Tobin MD Head CT 08/07/17 1706 Signed Impressions: Service Date/Time: Monday, August 07, 2017 17:42 - CONCLUSION: 1. Senescent changes with mild periventricular ischemic white matter demyelination. 2. Right sphenoid and ethmoid mucosal sinus disease. 3. No acute intracranial abnormality. Joao Guerrero MD Chest X-Ray 08/07/17 1702 Signed Impressions: Service Date/Time: Monday, August 07, 2017 17:17 - CONCLUSION: 1. Probable nondisplaced lateral 10th right rib fracture with right lower lobe atelectasis. No pneumothorax. Joao Guerrero MD PE at Discharge GENERAL: This is a well-nourished, well-developed patient, in no apparent distress. CARDIOVASCULAR: Regular rate and regular rhythm without murmurs, gallops, or rubs. RESPIRATORY: diminished air entry in bases. GASTROINTESTINAL: Abdomen soft, non-tender, nondistended. Normal, active bowel sounds MUSCULOSKELETAL: Extremities without clubbing, cyanosis, or edema. NEURO: Alert & Oriented x4 to person, place, time, situation. Moves all ext x4 Hospital Course COPD exacerbation with hypoxia/ with possible pneumonia- improved. - continue antibiotics. - continue neb treatments. -patient is on home oxygen. -pulmonary consult appreciated. left lung nodule - PET scan as outpatient. Chronic lower extremity edema - takes Lasix at home - denies history of heart failure but would like to r/o CHF - echo with EF 55% and grade I diastolic dysfunction. Right 10th rib fracture on x-ray s/p falls x 2 at home Right posterior rib pain - Incentive Spirometry to prevent pneumonia - physical therapy consulted - Poth 5/325 mg p.o. q6h PRN pain DVT prophylaxis - Lovenox 40 mg subq q24h Pt Condition on Discharge: Fair Discharge Disposition: Discharge Home Discharge Time: <= 30 minutes Discharge Instructions DIET: Follow Instructions for: Heart Healthy Diet Activities you can perform: Regular-No Restrictions Follow up Referrals: PCP Follow-up Pulmonology New Medications: Azithromycin (Zithromax) 250 Mg Tab 250 MG PO DAILY for Infection for 5 Days, #5 TAB 0 Refills Cefuroxime (Ceftin) 250 Mg Tab 500 MG PO BID for pneumonia for 7 Days, #28 TAB 0 Refills Prednisone (Prednisone) 5 Mg Tab 5 MG PO DIRECTED for copd for 10 Days, TAB 0 Refills 40 mg po daily for two days then 30 mg po daily for two days then 20 mg po daily for two days then 10 mg po daily for two days then 5 mg po daily for two days then stop. Tiotropium Inh (Spiriva Handihaler) 18 Mcg Cap 18 MCG INH DAILY for COPD for 30 Days, #30 CAP 0 Refills 1 capsule = 18 mcg Ipratropium-Albuterol Neb (Duoneb) 0.5-2.5 Mg/3 Ml Neb 1 AMPULE NEB Q4HR NEB PRN for wheezing, #20 ML 0 Refills Continued Medications: Aripiprazole (Abilify) 2 Mg Tab 2 MG PO DAILY, #30 TAB 0 Refills Carisoprodol (Soma) 350 Mg Tab 350 MG PO BID PRN for PAIN, TAB 0 Refills Citalopram (Celexa) 40 Mg Tab 40 MG PO DAILY for Control Depression, #30 TAB 0 Refills Fentanyl Patch 72 HR (Fentanyl Patch 72 HR) 100 Mcg/Hr Patch 100 MCG T-DERMAL Q72H for Pain Management, #10 PATCH 0 Refills Remove old patch when new one placed. Furosemide (Furosemide) 20 Mg Tab 20 MG PO DAILY, #30 TAB 0 Refills Lamotrigine (Lamictal) 100 Mg Tab 100 MG PO BID for Control Seizures, #60 TAB 0 Refills Discontinued Medications: Levofloxacin (Levaquin) 500 Mg Tablet Unknown Dose PO DAILY for Infection, TAB 0 Refills Val Perez MD Aug 09, 2017 09:31
[2017-08-09] MEDS ORDERED: PRED5TAB PO (09:35)
[2017-08-09] MEDS ORDERED: SPIRCAP INH (09:39)
[2017-08-09] MEDS ORDERED: INFLUENZA VIRUS VACCINE (QUADRIVALENT) 0.5 ML SYR IM ONE (10:00)
[2017-08-09] MEDS: lamoTRIgine 100 MG TAB PO SCH (10:08)
[2017-08-09] MEDS: AZITHROMYCIN INJ 250 MG in SODIUM CHLOR 0.9% 250 ML INJ 250 ML IV SCH (11:59)
[2017-08-09] MEDS ORDERED: fentaNYL 100 MCG/HR PATCH T-DERMAL SCH (12:00)
[2017-08-09] MEDS ORDERED: REMOVE OLD DURAGESIC (FENTANYL) PATCH T-DERMAL SCH (12:00)
--- NOTE | 2017-08-09 15:36 | HHI.PR ---
Subjective Remarks 71 YOWF with COPD exac, Bronchitis, Lung infilt CT chest 11 mm SHAYNA nodule Feels better Anxious to go home. Objective Vital Signs Vital Signs Date Time Temp Pulse Resp B/P (MAP) Pulse Ox O2 Delivery O2 Flow Rate FiO2 08/09/17 12:00 97.5 96 18 128/64 (85) 97 08/09/17 11:35 96 Nasal Cannula 2.00 08/09/17 09:58 Nasal Cannula 2.00 08/09/17 08:00 97.3 86 18 117/67 (84) 96 08/09/17 04:00 Nasal Cannula 2.00 08/09/17 03:44 98.4 89 20 128/65 (86) 97 08/09/17 00:25 98.2 88 20 121/61 (81) 96 08/09/17 00:00 Nasal Cannula 2.00 08/08/17 20:36 81 08/08/17 20:19 97.8 89 18 123/72 (89) 94 08/08/17 20:00 Nasal Cannula 2.00 08/08/17 19:00 98.5 88 18 132/72 (92) 93 08/08/17 18:19 93 Nasal Cannula 2.00 08/08/17 16:00 97.3 94 18 119/56 (77) 93 08/08/17 16:00 97.9 91 18 128/83 (98) 91 I/O 08/08/17 08/08/17 08/08/17 08/09/17 08/09/17 08/09/17 07:00 15:00 23:00 07:00 15:00 23:00 Intake Total 340 ml 580 ml 250 ml Output Total 1400 ml Balance 340 ml -820 ml 250 ml Intake Oral 240 ml 480 ml IV Total 100 ml 100 ml 250 ml Output Urine Total 1400 ml # Voids 2 5 # Bowel Movements 0 0 Result Diagram: [id number]/08/1753908/[id number]/17539 Objective Remarks GENERAL: MBMN WF, NAD SKIN: Warm and dry. HEAD: Normocephalic. EYES: No scleral icterus. No injection or drainage. NECK: Supple, trachea midline. No JVD or lymphadenopathy. CARDIOVASCULAR: Regular rate and rhythm without murmurs, gallops, or rubs. RESPIRATORY: Breath sounds equal bilaterally. No accessory muscle use. GASTROINTESTINAL: Abdomen soft, non-tender, nondistended. MUSCULOSKELETAL: No cyanosis, or edema. BACK: Nontender without obvious deformity. No CVA tenderness. A/P Assessment and Plan COPD Exac improved Lung infilt 11 mm SHAYNA nodule Nicotine use PLAN: Aerosol nebs Cont Abx PO steroids Will need PET scan as oyt pt Will FU in office. Girish Loyola MD Aug 09, 2017 15:36
[2017-08-12] MEDS ORDERED: REMOVE OLD DURAGESIC (FENTANYL) PATCH T-DERMAL SCH (11:00)
== END 2017-08-09 17:49 | disposition home or self-care (01) | DRG 190 ==
LOC: NEPE 16:07 → NEDA 19:29 → OBSVTOIN 19:44 → N04B 20:28
PROVIDERS: ADMIT Internal Medicine; ATTEND Internal Medicine
DX: J44.1 Chronic obstructive pulmonary disease with (acute) exacerbation (principal); J18.9 Pneumonia, unspecified organism; S22.31XA Fracture of one rib, right side, initial encounter for closed fracture; I51.89 Other ill-defined heart diseases; R60.0 Localized edema; R09.02 Hypoxemia; R91.1 Solitary pulmonary nodule; F32.9 Major depressive disorder, single episode, unspecified; W19.XXXA Unspecified fall, initial encounter; Z23 Encounter for immunization; Z87.891 Personal history of nicotine dependence; Z91.14 Patient's other noncompliance with medication regimen; Z99.81 Dependence on supplemental oxygen
CPT/HCPCS: 70450; 71010; 71275; 80048; 80053; 82550; 83880; 84484; 85025; 85610; 85730; 86403; 87040; 87077; 87186; 87205; 90686; 93005; 93306; 94150; 94640; 94664; 96374; J0456; J0696; J1650; J1940; J2920; J2930; J7050; Q2038; Q9967

== ENCOUNTER → 2017-10-10 | Day surgery (SDC) | payer MEDICARE, BC ==
[~2017-10-10] MED LIST: ARIP2 PO; CEFU1TAB18 PO; CELE40TA PO; DEXAMETHASONE SOD PHOS 4 MG/ML VIAL ONE; EPINEPHrine HCL (1:1000) 1 MG/ML VIAL ONE; FENT100D T-DERMAL; FURO20TA PO; IPRASOL NEB; LACTATED RINGER'S 1000 ML INJ 1,000 ML ONE; LAMO100 PO; MIDAZOLAM HCL 2 MG/2 ML VIAL ONE; MOXIFLOXACIN 0.5% OPHT SOLN 3 ML BTL ONE; ONDANSETRON HCL 4 MG/2 ML VIAL IV PUSH ONE; PHENYLEPHRINE HCL 10% OPTH SOLN 5 ML BTL ONE; PRED5TAB PO; PROPOFOL 200 MG/20 ML AMP IV ONE; SODIUM CHLORIDE 0.9% INJ 10 ML ONE; SOMA350T PO; SPIRCAP INH; TETRACAINE 0.5% OPTH SOLN 4 ML BTL ONE; TOBRAMYCIN/DEXAMETHASONE OPTH OINT 3.5 GM TUBE ONE; ZITH250T PO; ceFAZolin INJ 1,000 MG VIAL ONE; prednisoLONE ACETATE 1% OPHT SUSP 5 ML BTL ONE
--- NOTE | 2017-10-17 06:37 | MP ---
cc: JAVIER EPSTEIN DATE OF SURGERY 10/16/2017 PREOPERATIVE DIAGNOSIS Full-thickness macular hole repair, left eye. POSTOPERATIVE DIAGNOSIS Full-thickness macular hole repair, left eye. PROCEDURE Pars vitrectomy, macular hole closure, air-fluid exchange, insertion of 18% SF6 gas left eye. ANESTHESIA Dr. Austin, general BLOOD LOSS Less than 1 cc. COMPLICATIONS None INDICATION FOR THE PROCEDURE This is a delightful patient who has a long history of macular degeneration and developed a full thickness hole of her left eye with significant vision loss. The patient elected for surgical correction after review of the risks, benefits and alternatives. The patient understands that her vision will also be limited postoperatively from the macular degeneration. PROCEDURE NOTE After informed consent was obtained, the patient was brought to the operating room, general anesthesia was established. The left eye was prepped and draped in a sterile fashion with Betadine in the conjunctival fornix. A three port pars vitrectomy was established with self-retaining infusion cannula. The vitreous was evacuated and the vitreous traction relieved. The ILM highlighted with ICG and removed with ILM forceps. The peripheral scleral depression examination revealed areas of impending retinal holes which were treated with endolaser. Air-fluid exchange was carried out and macular hole noted to close. 18% SF6 gas was instilled. Trocars removed and sclerotomies closed. A subconjunctival injection of Ancef and dexamethasone were given. The eye was patched with Tobramycin ointment. The patient was brought to the recovery room in stable condition and will continue with [facility] her postoperative care. MD MICKEY Akers/MEHREEN /7:55 PM /6:26 AM
== END | disposition home or self-care (01) ==
LOC: ESDC 10:01
PROVIDERS: ATTEND Ophthalmology
DX: H35.342 Macular cyst, hole, or pseudohole, left eye (principal)
CPT/HCPCS: 00145; 67043; J0171; J0690; J1100; J2250; J2405; J3010; J7120

== ENCOUNTER 2018-02-08 20:31 | Emergency (ER) | payer MEDICARE, BC ==
[~2018-02-08] VITALS: Ht 157.5 cm; Wt 72.0 kg
[~2018-02-08 20:31] MED LIST changes: -DEXAMETHASONE SOD PHOS 4 MG/ML VIAL ONE; -EPINEPHrine HCL (1:1000) 1 MG/ML VIAL ONE; -LACTATED RINGER'S 1000 ML INJ 1,000 ML ONE; -MIDAZOLAM HCL 2 MG/2 ML VIAL ONE; -MOXIFLOXACIN 0.5% OPHT SOLN 3 ML BTL ONE; -ONDANSETRON HCL 4 MG/2 ML VIAL IV PUSH ONE; -PHENYLEPHRINE HCL 10% OPTH SOLN 5 ML BTL ONE; -PROPOFOL 200 MG/20 ML AMP IV ONE; -SODIUM CHLORIDE 0.9% INJ 10 ML ONE; -TETRACAINE 0.5% OPTH SOLN 4 ML BTL ONE; -TOBRAMYCIN/DEXAMETHASONE OPTH OINT 3.5 GM TUBE ONE; -ceFAZolin INJ 1,000 MG VIAL ONE; -prednisoLONE ACETATE 1% OPHT SUSP 5 ML BTL ONE
[2018-02-08 21:35] VITALS: BP 132/63; PULSE 69; RESP 18; TEMP 98.4; O2SAT 96
--- NOTE | 2018-02-08 22:18 | PD ---
HPI Chief Complaint: Fall Time Seen by Provider: 22:11 Travel History International Travel<30 days: No Contact w/Intl Traveler<30days: No Traveled to known affect area: No History of Present Illness HPI 72-year-old female presents emergency department for evaluation of a head injury. Patient states 3 days ago she had a trip and fall while visiting a friend at the assisted living facility. She struck her head on the ground. She states she did not lose consciousness. She did sustain a black eye on the right. She states since the incident she has had a right-sided headache, primarily behind her right eye. Moderate in severity. She has had no focal deficits weakness. No nausea or vomiting. She has no other symptoms to report at this time. 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) Cardiovascular Problems: No COPD: Yes Endocrine: No Genitourinary: No Musculoskeletal: No Neurologic: No Psychiatric: No Reproductive: No Respiratory: Yes Immunizations Current: Yes Pneumonia: Yes Past Surgical History Abdominal Surgery: Yes (gallbladder) Appendectomy: Yes Cholecystectomy: Yes Gynecologic Surgery: Yes (hysterectomy) Hysterectomy: Yes Tonsillectomy: Yes Social History Alcohol Use: Yes (occas) Tobacco Use: No Substance Use: No Allergies-Medications (Allergen,Severity, Reaction): Coded Allergies: No Known Allergies (Unverified Adverse Reaction, Unknown, 02/08/18) Reported Meds & Prescriptions Reported Meds & Active Scripts Active Spiriva Handihaler (Tiotropium Inh) 18 Mcg Cap 18 Mcg INH DAILY 30 Days 1 capsule = 18 mcg Prednisone 5 Mg Tab 5 Mg PO DIRECTED 10 Days 40 mg po daily for two days then 30 mg po daily for two days then 20 mg po daily for two days then 10 mg po daily for two days then 5 mg po daily for two days then stop. Zithromax (Azithromycin) 250 Mg Tab 250 Mg PO DAILY 5 Days Ceftin (Cefuroxime Axetil) 250 Mg Tab 500 Mg PO BID 7 Days Duoneb (Ipratropium-Albuterol Neb) 0.5-2.5 Mg/3 Ml Neb 1 Ampule NEB Q4HR NEB PRN Reported Fentanyl Patch 72 HR (Fentanyl) 100 Mcg/Hr Patch 100 Mcg T-DERMAL Q72H Remove old patch when new one placed. Furosemide 20 Mg Tab 20 Mg PO DAILY Celexa (Citalopram Hydrobromide) 40 Mg Tab 40 Mg PO DAILY Lamictal (Lamotrigine) 100 Mg Tab 100 Mg PO BID Abilify (Aripiprazole) 2 Mg Tab 2 Mg PO DAILY Soma (Carisoprodol) 350 Mg Tab 350 Mg PO BID PRN Review of Systems Except as stated in HPI: all other systems reviewed are Neg Physical Exam Narrative GENERAL: Well-nourished, well-developed female patient in no acute distress. SKIN: Focused skin assessment warm/dry. HEAD: Normocephalic. EYES: No scleral icterus. No injection or drainage. Periorbital ecchymosis on the right. EOMI. PERRLA. NECK: Supple, trachea midline. No JVD or lymphadenopathy. CARDIOVASCULAR: Regular rate and rhythm without murmurs, gallops, or rubs. RESPIRATORY: Breath sounds equal bilaterally. No accessory muscle use. GASTROINTESTINAL: Abdomen soft, non-tender, nondistended. MUSCULOSKELETAL: No cyanosis, or edema. 5+ strength equal bilateral extremities. BACK: Nontender without obvious deformity. No CVA tenderness. NEUROLOGICAL: Awake and alert. Cranial nerves II through XII intact. Motor and sensory grossly within normal limits. Five out of 5 muscle strength in all muscle groups. Normal speech. Data Data Last Documented VS Vital Signs Date Time Temp Pulse Resp B/P (MAP) Pulse Ox O2 Delivery O2 Flow Rate FiO2 02/08/18 22:28 Room Air 02/08/18 21:35 98.4 69 18 132/63 (86) [address] Brain W/O Iv Contrast(Rout) (02/08/18 ) Ct Cerv Spine W/O Contrast (02/08/18 ) Chest, Single Ap (02/08/18 ) Ct Facial Bones W/O Iv Cont (02/08/18 ) Ed Discharge Order (02/08/18 23:05) [facility] Medical Decision Making Medical Screen Exam Complete: Yes Emergency Medical Condition: Yes Medical Record Reviewed: Yes Differential Diagnosis Minor head injury versus concussion versus intracranial hemorrhage versus facial fracture versus contusion Narrative Course 72-year-old female presents emergency department for evaluation following a head injury sustained 3 days ago during a trip and fall. Patient does have right periorbital ecchymosis. Otherwise exam is unremarkable. Neuro exam is nonfocal. Last Impressions Maxillofacial CT 02/08/18 0000 Signed Impressions: Service Date/Time: February 22:40 - CONCLUSION: 1. The bones are osteopenic. No acute fracture. Anup Brizuela MD Head CT 02/08/18 0000 Signed Impressions: Service Date/Time: February 22:40 - CONCLUSION: 1. No acute intracranial abnormalities. Anup Brizuela MD Chest X-Ray 02/08/18 0000 Signed Impressions: Service Date/Time: February 22:25 - CONCLUSION: 1. Minimal basilar atelectasis or scarring. No effusion or pneumothorax. Anup Brizuela MD Cervical Spine CT 02/08/18 0000 Signed Impressions: Service Date/Time: February 22:40 - CONCLUSION: 1. No acute fracture. Minimal anterolisthesis of C4 on C5 likely degenerative. Anup Brizuela MD Findings are discussed with the patient. I have also discussed with my attending physician. Patient will be discharged home at this time. She agrees to return immediately with any acute worsening symptoms. Diagnosis Primary Impression: Head injury Qualified Codes: S09.90XA - Unspecified injury of head, initial encounter Additional Impression: Facial contusion Qualified Codes: S00.83XA - Contusion of other part of head, initial encounter Referrals: Primary Care Physician Patient Instructions: General Instructions, Head Injury (ED) Additional Instructions: Follow-up with your primary care provider Return immediately with any acute worsening of symptoms Med/Other Pt SpecificInfo: No Change to Meds Disposition: 01 DISCHARGE HOME Condition: Stable Dayami Landeros Feb 08, 2018 22:18
--- NOTE | 2018-02-08 22:50 | RADRPT ---
EXAM DATE/TIME: 02/08/2018 22:25 [facility] COMPARISON: CHEST SINGLE AP, August 07, 2017, 17:17. INDICATIONS : Right side chest pain from fall. MEDICAL HISTORY : Chronic obstructive pulmonary disease. SURGICAL HISTORY : Hysterectomy. Appendectomy. Cholecystectomy. ENCOUNTER: Initial ACUITY: 4 - 6 days PAIN SCORE: 5/10 LOCATION: Right chest FINDINGS: A single view of the chest demonstrates minimal basilar atelectasis. No effusion. No pneumothorax. He art size within normal limits. CONCLUSION: 1. Minimal basilar atelectasis or scarring. No effusion or pneumothorax. Anup Brizuela MD on February 08, 2018 at 22:47 Board Certified Radiologist. This report was verified electronically.
--- NOTE | 2018-02-08 22:55 | RADRPT ---
EXAM DATE/TIME: 02/08/2018 22:40 [facility] COMPARISON: CT BRAIN W/O CONTRAST, August 07, 2017, 17:42. INDICATIONS : Trauma, fall. RADIATION DOSE: 56.35 CTDIvol (mGy) MEDICAL HISTORY : None SURGICAL HISTORY : None. ENCOUNTER: Initial ACUITY: 1 day PAIN SCALE: 5/10 LOCATION: cranial TECHNIQUE: Multiple contiguous axial images were obtained of the head. Using automated exposure control and adj ustment of the mA and/or kV according to patient size, radiation dose was kept as low as reasonably a chievable to obtain optimal diagnostic quality images. DICOM format image data is available electro nically for review and comparison. FINDINGS: CEREBRUM: The ventricles are normal for age. No evidence of midline shift, mass lesion, hemorrhage or acute in farction. No extra-axial fluid collections are seen. POSTERIOR FOSSA: The cerebellum and brainstem are intact. The 4th ventricle is midline. The cerebellopontine angle i s unremarkable. EXTRACRANIAL: The visualized portion of the orbits is intact. SKULL: The calvaria is intact. No evidence of skull fracture. CONCLUSION: 1. No acute intracranial abnormalities. Anup Brizuela MD on February 08, 2018 at 22:51 Board Certified Radiologist. This report was verified electronically.
--- NOTE | 2018-02-08 22:58 | RADRPT ---
EXAM DATE/TIME: 02/08/2018 22:40 [facility] COMPARISON: No previous studies available for comparison. INDICATIONS : Trauma, fall. RADIATION DOSE: 15.56 CTDIvol (mGy) MEDICAL HISTORY : None SURGICAL HISTORY : None. ENCOUNTER: Initial ACUITY: 1 day PAIN SCALE: 5/10 LOCATION: neck TECHNIQUE: Volumetric scanning of the cervical spine was performed. Multiplanar reconstructions in the sagittal, coronal and oblique axial planes were performed. Using automated exposure control and adjustment o f the mA and/or kV according to patient size, radiation dose was kept as low as reasonably achievable to obtain optimal diagnostic quality images. DICOM format image data is available electronically f or review and comparison. FINDINGS: No acute fracture identified. Moderate degenerative disc disease at C4-5-6. No prevertebral soft tiss ue swelling. Minimal degenerative anterolisthesis of C4 on C5. CONCLUSION: 1. No acute fracture. Minimal anterolisthesis of C4 on C5 likely degenerative. Anup Brizuela MD on February 08, 2018 at 22:54 Board Certified Radiologist. This report was verified electronically.
--- NOTE | 2018-02-08 23:00 | RADRPT ---
EXAM DATE/TIME: 02/08/2018 22:40 [facility] COMPARISON: No previous studies available for comparison. INDICATIONS : Trauma, fall. RADIATION DOSE: 21.96 CTDIvol (mGy) MEDICAL HISTORY : None SURGICAL HISTORY : None. ENCOUNTER: Initial ACUITY: 1 day PAIN SCORE: 5/10 LOCATION: facial TECHNIQUE: Volumetric scanning of the facial bones was performed. Using automated exposure control and adjustme nt of the mA and/or kV according to patient size, radiation dose was kept as low as reasonably achiev able to obtain optimal diagnostic quality images. DICOM format image data is available electronicall y for review and comparison. FINDINGS: ORBITS: The orbital and infraorbital osseous structures are intact. The retroconal structures have a normal configuration. No radiopaque foreign bodies are seen. NASAL BONE: The nasal bone and maxillary spine are intact ZYGOMATIC ARCHES: Symmetric without evidence of fracture. SINUSES: The maxillary, ethmoid and frontal sinuses are intact. No air-fluid levels seen. NASAL CAVITY: The nasal septum is intact and midline. The lacrimal ducts are intact. SOFT TISSUES: No radiopaque foreign bodies seen. No soft-tissue swelling is seen. INTRACRANIAL: No intracranial air seen. CRIBIFORM PLATE: Grossly intact. CONCLUSION: 1. The bones are osteopenic. No acute fracture. Anup Brizuela MD on February 08, 2018 at 22:56 Board Certified Radiologist. This report was verified electronically.
== END 2018-02-08 23:24 | disposition home or self-care (01) ==
LOC: NEPD 20:31
DX: S00.83XA Contusion of other part of head, initial encounter (principal); W01.0XXA Fall on same level from slipping, tripping and stumbling without subsequent striking against object, initial encounter; Y92.099 Unspecified place in other non-institutional residence as the place of occurrence of the external cause; J44.9 Chronic obstructive pulmonary disease, unspecified; Z85.828 Personal history of other malignant neoplasm of skin
CPT/HCPCS: 70450; 70486; 71045; 72125; 99284